=== PATIENT | female | born 1950 | race Caucasian/White ===

== ENCOUNTER 2016-12-21 11:15 | Emergency (ER) | payer MEDICARE ==
[~2016-12-21] VITALS: Ht 176.8 cm; Wt 75.0 kg
[~2016-12-21 11:15] MED LIST: ACET325T51 PO; ASCO-294 PO; BACL10TA PO; BISA10SU61 RC; CHOL200025 PO; CIPR-231 PO; CLOP75TA3 PO; CRAN450T9 PO; DOCU-41 PO; FOLI1TAB18 PO; FUR20 PO; GABA-504 PO; GABA800T2 PO; IBUP200C PO; LACO150T2 PO; LACT1CAP44 PO; LEVE10006 PO; MIDO5TAB PO; MULT1CAP33 PO; OMEG-38 PO; TAMS0.4C98 PO; TRAZ-118 PO
[2016-12-21 11:27] VITALS: BP 108/67; PULSE 57; RESP 17; O2SAT 98
--- NOTE | 2016-12-21 11:44 | ED.REPORT ---
HPI-General Illness Date of Service Dec 21, 2016 ED Provider: The patient is a 66 year old female with history of multiple sclerosis, seizure disorder, thrombocytopenia, recurrent UTIs, recurrent aspiration pneumonia with sepsis, previous stroke, and respiratory failure requiring mechanical ventilation, who presents to the emergency department complaining of a suprapubic catheter problem that began this morning. The patient is concerned that she is leaking urine from her vaginal area. She had 300 mL drained from the catheter bag this morning but she has not had any drainage since it was emptied. She normally empties the bag every 8 hours or so. She has noticed some pain when the urine comes out. She denies fever, chills, vomiting or diarrhea. The catheter was replaced about 1 month ago. She is scheduled to have it replaced again early next week. Nursing Notes Stated Complaint: LEAK IN PUBIC CATHETER Chief Complaint: General Complaint Nursing Notes Reviewed: Yes Allergies: Coded Allergies: Contrast Media (Verified Allergy, Intermediate, rash, 08/05/16) Give benadryl before contrast glatiramer (copolymer 1) (Verified Allergy, Unknown, 08/05/16) iodine (Verified Allergy, Unknown, 08/05/16) tizanidine (Verified Allergy, Unknown, BP drops, 08/05/16) Scheduled Ascorbate Calcium (Vitamin C) 500 Mg Tablet 500 MG PO DAILY Baclofen (Baclofen) 10 Mg Tablet 30 MG PO TID Cholecalciferol (Vitamin D3) (Vitamin D3) 2,000 Unit Tablet 2,000 UNIT PO DAILY Ciprofloxacin (Cipro) 500 Mg Tablet 500 MG PO BID Clopidogrel Bisulfate (Plavix) 75 Mg Tablet 75 MG PO DAILY Cranberry Fruit (Cranberry) 450 Mg Tablet 450 MG PO DAILY Docusate Sodium (Colace) 100 Mg Capsule 100 MG PO DAILY Folic Acid (Folic Acid) 1 Mg Tablet 1 MG PO BID Furosemide (Furosemide) 20 Mg Tab 20 MG PO DAILY Gabapentin (Gabapentin) 400 Mg Capsule 400 MG PO BID at 0800 and 1400 in the AM and noon Gabapentin (Gabapentin) 800 Mg Tablet 800 MG PO HS Lacosamide (Vimpat) 150 Mg Tablet 150 MG PO BID Lactobacillus Acidophilus (Acidophilus Lactobacillus) 1 Each Capsule 1 EACH PO BID Levetiracetam (Levetiracetam) 1,000 Mg Tablet 1,500 MG PO BID Midodrine (Midodrine) 5 Mg Tablet 10 MG PO TID Multivitamin (Multivitamins) 1 Each Capsule 1 EACH PO DAILY [place]-3/Dha/Epa/Fish Oil (Fish Oil 1,000 mg Softgel) 1 Each Capsule 1 EACH PO DAILY Tamsulosin (Flomax) 0.4 Mg Capsule 0.4 MG PO HS Scheduled PRN Acetaminophen (Acetaminophen) 325 Mg Tablet 650 MG PO Q4H PRN PRN pain/fevers Bisacodyl (Dulcolax Rectal) 10 Mg Supp.rect 10 MG RC DAILY PRN PRN For Constipation Ibuprofen (Ibuprofen) 200 Mg Capsule 200-600 EACH PO TID PRN PRN For Pain Trazodone (Trazodone) 100 Mg Tablet 100 MG PO HS PRN PRN For Sleep General Time Seen by MD: 11:44 Chief Complaint Other (catheter problem) Hx Obtained From: Patient Arrived By: Wheelchair Sudden in Onset?: Yes Onset Occurred: 1 - 4 hours ago Symptom Duration: Since onset Location: : Abdomen Quality: Painful Severity: Current: Mild Severity: Maximum: Mild Recent Healthcare: No recent hospitalization Similar Sx Previous: No Past Medical History Past Medical History Notes: Code Status: FULL CODE Neurologist: Ercik Tenorio [phone] integration project manager: Elin Wright [phone] Past Medical History 1. Multiple sclerosis diagnosed 1997, secondarily progressive. 2. Seizure disorder. 3. Thrombocytopenia. 4. Obstructive sleep apnea on CPAP. 5. Osteoporosis. 6. Depression. 7. Recurrent UTI with history of ESBL, E. coli UTI. 8. Sepsis secondary to pneumonia. 9. Recurrent aspiration pneumonia with a history of PEG placement, subsequently removed. 10. TIA August 2013. 11. Gastroesophageal reflux disease. 12. Colonic polyps. 13. Dysphagia with PEG placement December 2013, subsequently removed. 14. Respiratory failure requiring mechanical ventilation, November 2013. 15. MRSA colonization. 16. Cavernoma in brain around November, Past Surgical History 1. PEG tube placement, December 07, 2013. 2. Hysterectomy, 3. Bilateral cataracts. 4. Brain surgery to remove non-cancerous cavernoma Nov, 2015 5. Suprapubic catheter Family History noncontributory Smoking History Former Smoker, Never Smoker Social History Currently living at [facility] Alcohol Use: Denies alcohol use Drug Use: Denies drug use Other Social History: Good social support, , Local resident Ambulatory Status Wheelchair Review of Systems +catheter problem Full Review of Systems Constitutional: Denies: Chills, Fever GI: Reports: Abdominal pain, Denies: Diarrhea, Vomiting Female: Reports: Urination decreased Complete sys rev & neg: except as marked. Physical Exam Vital Signs Vital Signs Date Time Temp Pulse Resp B/P Pulse Ox O2 Delivery O2 Flow Rate FiO2 12/21/16 11:27 35.9 57 17 108/67 98 Room Air Initial VS: Reviewed Head / Eyes: Atraumatic, Normocephalic, PERRL ENT: Mucous membranes moist, Conjunctiva normal, No scleral icterus Neck: Supple, Non-tender, Full range of motion Respiratory: Breath sounds normal, Clear to auscultation, No respiratory distress Cardiovascular: Regular rate & rhythm, Heart sounds normal, Intact distal pulses Lymphatic: No lymphadenopathy Extremities: Vascular intact, Neuro intact, No swelling, No tenderness Skin: Warm, Dry, No cyanosis Neurologic: Alert, Oriented, Nonfocal Psychiatric: Mood/affect normal, Behavior normal, Normal thought content General/Constitutional: Awake, Alert, Cooperative Abdomen: Soft Fullness in lower abdomen. Suprapubic catheter in place without redness or signs of infection. Interpretation & Diagnostics Bedside abdominal US: Bladder is bulging but not flowing. Procedures PROCEDURE: Suprapubic catheter replacement TIME: 1310 NOES: Verbal consent. Time-out performed. Standard sterile precautions and sterile technique. Betadine x3. 14 icelandic 5 cc balloon silicone catheter placed with return of clear urine. Re-Eval/Medical Decision Med Decision/Clinical Course Suprapubic Steward was clogged, this was replaced under sterile conditions. Appropriate drainage afterward. Stable for discharge. Return precautions given. Source of Hx: Old records Time of Eval: 12:07 Re-Evaluation/Progress Note: Completed bedside ultrasound. Discussed plan to flush the suprapubic catheter. Time of Eval: 13:26 Re-Evaluation/Progress Note: Discussed plan for discharge. All questions were addressed. Counseled Regarding: Diagnosis, Lab results, Need for follow-up, When/why to return to ED Discharge & Departure Primary Impression: Blocked suprapubic catheter Encounter type: initial encounter Qualified Code: T83.090A - Other mechanical complication of cystostomy catheter, initial encounter Disposition: Home Discharge Condition All VS Reviewed: Yes Condition: Stable Additional Instructions: Thank you for entrusting us with your care today. We were able to replace your suprapubic catheter. It appears to be functioning properly at this time. Followup with your regular doctor next week for re-evaluation. Seek care for decreased urine output, abdominal pain, fever, chills, vomiting, or any other new or concerning symptoms. Referrals: Buster Sarmiento MD (PCP) Scribe Attestation Portions of this note were transcribed by Linda Garland. I, Dr. Yuen personally performed the history, physical exam and medical decision-making; I reviewed and confirmed the accuracy of the information in the transcribed note. Signed by: Grace Geronimo, 12/21/2016 at 1400. copies to: Buster Sarmiento MD O'Kelley, Timothy S DO Dec 21, 2016 11:44 Linda Garland Dec 21, 2016 11:49
[2016-12-21 15:40] VITALS: BP 135/68; PULSE 52; RESP 16; O2SAT 95
== END 2016-12-21 14:03 | disposition home or self-care (01) ==
LOC: SED 11:15
DX: T83.091A Other mechanical complication of indwelling urethral catheter, initial encounter (principal); Y84.6 Urinary catheterization as the cause of abnormal reaction of the patient, or of later complication, without mention of misadventure at the time of the procedure; Y93.9 Activity, unspecified; Y92.9 Unspecified place or not applicable; Y99.8 Other external cause status; K21.9 Gastro-esophageal reflux disease without esophagitis; Z86.73 Personal history of transient ischemic attack (TIA), and cerebral infarction without residual deficits; Z85.841 Personal history of malignant neoplasm of brain; Z90.710 Acquired absence of both cervix and uterus; Z87.891 Personal history of nicotine dependence; Z79.899 Other long term (current) drug therapy; Z88.8 Allergy status to other drugs, medicaments and biological substances; Z91.041 Radiographic dye allergy status

== ENCOUNTER 2017-05-17 09:05 | Emergency (ER) | payer MEDICARE ==
[~2017-05-17] VITALS: Ht 175.3 cm; Wt 72.7 kg
--- NOTE | 2017-05-17 09:08 | ED.REPORT ---
HPI-General Illness Date of Service May 17, 2017 ED Provider: Bennett Pittman MD Pt is a paraplegic 66 y/o female w/ a hx of MS, recurrent UTIs, urinary retention s/p suprapubic catheter, hemorrhagic cavernoma, presenting to the ED via EMS from [facility] due to suprapubic catheter problem. 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 She had a suprapubic catheter placed due to urinary retention. The catheter typically is replaced once each month at [facility]. Today the nurse at the [facility] tried to replace it and after removing it was unable to replace it and therefore she was sent here. The patient has no symptoms and is only here to have the catheter replaced. Nursing Notes Stated Complaint: CLOGGED CATH Nursing Notes Reviewed: Yes Allergies: Coded Allergies: glatiramer (copolymer 1) (Verified Allergy, Unknown, 05/17/17) iodine (Verified Allergy, Unknown, 05/17/17) tizanidine (Verified Allergy, Unknown, BP drops, 05/17/17) Scheduled Ascorbate Calcium (Vitamin C) 500 Mg Tablet 500 MG PO DAILY Baclofen (Baclofen) 10 Mg Tablet 30 MG PO TID Cholecalciferol (Vitamin D3) (Vitamin D3) 2,000 Unit Tablet 2,000 UNIT PO DAILY Ciprofloxacin (Cipro) 500 Mg Tablet 500 MG PO BID Clopidogrel Bisulfate (Plavix) 75 Mg Tablet 75 MG PO DAILY Cranberry Fruit (Cranberry) 450 Mg Tablet 450 MG PO DAILY Docusate Sodium (Colace) 100 Mg Capsule 100 MG PO DAILY Folic Acid (Folic Acid) 1 Mg Tablet 1 MG PO BID Furosemide (Furosemide) 20 Mg Tab 20 MG PO DAILY Gabapentin (Gabapentin) 400 Mg Capsule 400 MG PO BID at 0800 and 1400 in the AM and noon Gabapentin (Gabapentin) 800 Mg Tablet 800 MG PO HS Lacosamide (Vimpat) 150 Mg Tablet 150 MG PO BID Lactobacillus Acidophilus (Acidophilus Lactobacillus) 1 Each Capsule 1 EACH PO BID Levetiracetam (Levetiracetam) 1,000 Mg Tablet 1,500 MG PO BID Midodrine (Midodrine) 5 Mg Tablet 10 MG PO TID Multivitamin (Multivitamins) 1 Each Capsule 1 EACH PO DAILY [place]-3/Dha/Epa/Fish Oil (Fish Oil 1,000 mg Softgel) 1 Each Capsule 1 EACH PO DAILY Tamsulosin (Flomax) 0.4 Mg Capsule 0.4 MG PO HS Scheduled PRN Acetaminophen (Acetaminophen) 325 Mg Tablet 650 MG PO Q4H PRN PRN pain/fevers Bisacodyl (Dulcolax Rectal) 10 Mg Supp.rect 10 MG RC DAILY PRN PRN For Constipation Ibuprofen (Ibuprofen) 200 Mg Capsule 200-600 EACH PO TID PRN PRN For Pain Trazodone (Trazodone) 100 Mg Tablet 100 MG PO HS PRN PRN For Sleep General Time Seen by MD: 09:07 Chief Complaint Other (catheter complication) Hx Obtained From: Patient, EMS Arrived By: Ambulance Sudden in Onset?: Yes Onset Occurred: Just prior to arrival Symptom Duration: Since onset Severity: Current: No pain currently Severity: Maximum: No pain Past Medical History Past Medical History Notes: Neurologist: Erick Tenorio [phone] recruiter manager: Elin Wright [phone] Past Medical History 1. Multiple sclerosis diagnosed 1997, secondarily progressive. 2. Seizure disorder. 3. Thrombocytopenia. 4. Obstructive sleep apnea on CPAP. 5. Osteoporosis. 6. Depression. 7. Recurrent UTI with history of ESBL, E. coli UTI. 8. Sepsis secondary to pneumonia. 9. Recurrent aspiration pneumonia with a history of PEG placement, subsequently removed. 10. TIA August 2013. 11. Gastroesophageal reflux disease. 12. Colonic polyps. 13. Dysphagia with PEG placement December 2013, subsequently removed. 14. Respiratory failure requiring mechanical ventilation, November 2013. 15. MRSA colonization. 16. 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 Paraplegia Past Surgical History 1. PEG tube placement, December 07, 2013. 2. Hysterectomy, 3. Bilateral cataracts. 4. Brain surgery to remove non-cancerous cavernoma Nov, 2015 5. Suprapubic catheter Family History noncontributory Smoking History Former Smoker, Never Smoker Social History Currently living at [facility] Alcohol Use: Denies alcohol use Drug Use: Denies drug use Other Social History: Good social support, , Local resident Ambulatory Status Wheelchair Review of Systems Full Review of Systems Constitutional: Denies: Fever GI: Denies: Abdominal pain, Vomiting Complete sys rev & neg: except as marked. Physical Exam Vital Signs Vital Signs Date Time Temp Pulse Resp B/P Pulse Ox O2 Delivery O2 Flow Rate FiO2 05/17/17 10:36 62 14 120/68 96 Room Air 05/17/17 09:13 36.0 76 16 140/77 98 Initial VS: Reviewed Head / Eyes: Atraumatic, Normocephalic ENT: Mucous membranes moist, Conjunctiva normal Neck: Full range of motion Respiratory: Breath sounds normal, Clear to auscultation, No respiratory distress Cardiovascular: Regular rate & rhythm, Heart sounds normal, Intact distal pulses Extremities: Vascular intact, No swelling Skin: Warm, Dry, No cyanosis Neurologic: Alert, Oriented, Nonfocal Psychiatric: Mood/affect normal, Behavior normal, Normal thought content General/Constitutional: Awake, Alert, No acute distress, Well appearing, Cooperative, Not toxic appearing Abdomen: Atraumatic, Soft, Non-tender, No guarding, No rebound, No distention, No palpable mass Left suprapubic region: suprapubic catheter that is absent Lower Extremity / Pelvis / MS: Atraumatic, No deformity, Vascular intact Compression stockings present Re-Eval/Medical Decision Med Decision/Clinical Course In summary, the patient is a 66-year-old female brought in from [facility] after they were unable to replace a clogged suprapubic Steward catheter. They reportedly removed her catheter after it became clogged this morning and were unable to successfully place a repalce it there. Here in the emergency department she is afebrile with stable vital signs and overall well appearing. Her catheter site is clean without any evidence of infection. She has no complaints at this time and states that her catheter becomes clogged from time to time and that they are usually able to replace it at [facility] but were not successful is morning. I attempted to pass a 16 [place] coud tip Steward with sterile procedure however it was too large. I switched to a 14 [place] coud tip catheter which passed with relative ease. Clear yellow urine freely drained from the catheter. At this time, the patient reports no fevers or chills. She has stable vital signs. Her abdomen is nontender. There are no signs of urinary tract infection, cystitis or bleeding. I feel that she is appropriate for discharge back to [facility]. Patient has no other questions or concerns at this time. Prior to discharge follow-up and return precautions were reviewed in detail with the patient who verbalized understanding and agreement with the plan. The patient was discharged in stable condition. Source of Hx: Old records Time of Eval: 09:24 Re-Evaluation/Progress Note: Pt rechecked. Informed pt of plan for discharge. Pt understands and agrees with plan for discharge. F/U instructions and RTER warnings given. All questions addressed. Counseled Regarding: Diagnosis, Need for follow-up, When/why to return to ED Discharge & Departure Primary Impression: Encounter for suprapubic catheter care Additional Impression: Steward catheter problem Encounter type: initial encounter Qualified Code: T83.9XXA - Unspecified complication of genitourinary prosthetic device, implant and graft, initial encounter Disposition: Home Discharge Condition All VS Reviewed: Yes Condition: Stable Patient Instructions: How to Care for Your Suprapubic Catheter (ED) Additional Instructions: The suprapubic catheter was replaced successfully with a 14 [place] coude tip. Please return to the emergency department for any complications or concerns including abdominal pain, fever, chills, vomiting, or if your catheter clogs. Follow-up with your urologist as directed. Referrals: Buster Sarmiento MD (PCP) Scribe Attestation Portions of this note were transcribed by Collin Jenkins. I, Dr. Pitmtan personally performed the history, physical exam and medical decision-making; I reviewed and confirmed the accuracy of the information in the transcribed note. copies to: Buster Sarmiento MD Longstreet, Beck O MD May 17, 2017 09:08 COLLIN JENKINS May 17, 2017 09:21
[2017-05-17 09:13] VITALS: BP 140/77; PULSE 76; RESP 16; O2SAT 98
[2017-05-17 10:36] VITALS: BP 120/68; PULSE 62; RESP 14; O2SAT 96
== END 2017-05-17 10:37 | disposition home or self-care (01) ==
LOC: SED 09:05
DX: T83.098A Other mechanical complication of other urinary catheter, initial encounter (principal); Y84.6 Urinary catheterization as the cause of abnormal reaction of the patient, or of later complication, without mention of misadventure at the time of the procedure; Y93.89 Activity, other specified; Y99.8 Other external cause status; Y92.122 Bedroom in nursing home as the place of occurrence of the external cause; K21.9 Gastro-esophageal reflux disease without esophagitis; Z86.73 Personal history of transient ischemic attack (TIA), and cerebral infarction without residual deficits; Z87.39 Personal history of other diseases of the musculoskeletal system and connective tissue; Z86.011 Personal history of benign neoplasm of the brain; Z87.440 Personal history of urinary (tract) infections; Z88.8 Allergy status to other drugs, medicaments and biological substances